=== PATIENT | male | born 1960 | race Caucasian/White ===

== ENCOUNTER 2020-04-20 10:52 | Outpatient (CLI) | payer MEDICARE, MEDICAID, SELFPAY | END 2020-04-20 10:53 | disposition home or self-care (01) | LOC: CHSLAB 11:01 | PROVIDERS: PCP Family Medicine; Visit Provider Specialist | DX: L82.1 Other seborrheic keratosis (principal); D22.61 Melanocytic nevi of right upper limb, including shoulder | CPT/HCPCS: 88305; 88342 ==

== ENCOUNTER 2022-03-28 09:24 | Outpatient (CLI) | payer MEDICARE, MEDICAID, SELFPAY | END 2022-03-28 09:25 | disposition home or self-care (01) | LOC: CHSLAB 09:27 | PROVIDERS: PCP Family Medicine; Visit Provider Specialist | DX: L57.0 Actinic keratosis (principal) | CPT/HCPCS: 88305 ==

== ENCOUNTER 2023-07-10 09:20 | Outpatient (CLI) | payer MEDICARE, MEDICAID, SELFPAY | END 2023-07-10 09:21 | disposition home or self-care (01) | PROVIDERS: PCP Family Medicine; Visit Provider Specialist | DX: L01.00 Impetigo, unspecified (principal) | CPT/HCPCS: 87070; 87205 ==